=== PATIENT | female | born 2000 | race Caucasian/White ===

== ENCOUNTER 2019-01-22 00:36 | Emergency (ER) | payer SELFPAY ==
--- NOTE | 2019-01-22 01:06 | EDM.PDOC ---
ED HPI GENERAL MEDICAL PROBLEM - General Chief Complaint: Chest Pain Stated Complaint: CHEST PAIN/TINGLING IN BOTH ARMS Time Seen by Provider: 01/22/19 01:03 Source of Information: Reports: Patient History Limitations: Reports: No Limitations - History of Present Illness INITIAL COMMENTS - FREE TEXT/NARRATIVE: 89-year-old female attends the ED with her father. She states she awoke from sleep after stepping for less than a half an hour with diffuse central chest pressure discomfort and left arm numbness and tingling. Recurrent chest discomforts for many months at least the last 3 months and has been told that she likely has reflux disease. She takes omeprazole on a when necessary basis. She appreciated reflux only once in the past. He denies any pain on deep breathing she denies cough or sputum production. She is just getting over a cold. No associated fever or chills. Her pain in her left arm is in her biceps right where the blood pressure cuff is. She states she tends to be high strong and prone to anxiety but has never had a full-blown panic attack where she felt a sense of doom or that she might . She's not aware of palpitations or severe dyspnea. Onset: Today Onset Date: 01/22/19 Onset Time: 00:10 Duration: Minutes: Location: Reports: Chest (Central chest pressure discomfort without any heartburn.), Radiates to (Discomfort in the left upper extremity with more numbness and tingling.) Quality: Reports: Pressure (She finds it difficult to quantify her chest discomfort more of a pressure than anything.), Other Severity: Moderate Improves with: Reports: None Worsens with: Reports: None Context: Denies: Activity, Exercise, Lifting, Sick Contact, Trauma, Other Associated Symptoms: Reports: Other (Feel some discomfort in her left arm with numbness and tingling.) Treatments PATIENT REGISTRATION REPRESENTATIVE: Reports: Other (see below) (None.) - Related Data Allergies Allergy/AdvReac Type Severity Reaction Status Date / Time No Known Allergies Allergy Verified 01/22/19 00:44 Home Meds: Home Meds . [No Known Home Meds] 08/24/18 [History] Past Medical History - Past Health History Medical/Surgical History: Denies Medical/Surgical History Psychiatric History: Reports: Anxiety - Infectious Disease History Infectious Disease History: Reports: None Social & Family History - Family History Family Medical History: Noncontributory - Tobacco Use Smoking Status *Q: Current Every Day Smoker Years of Tobacco use: 1 Packs/Tins Daily: 0.5 - Caffeine Use Caffeine Use: Reports: Soda - Recreational Drug Use Recreational Drug Use: No - Living Situation & Occupation Living situation: Reports: with Family Occupation: Student ED ROS GENERAL - Review of Systems Review Of Systems: See Below Constitutional: Reports: No Symptoms HEENT: Reports: No Symptoms Respiratory: Reports: No Symptoms Cardiovascular: Reports: No Symptoms Endocrine: Reports: No Symptoms GI/Abdominal: Reports: No Symptoms : Reports: No Symptoms Musculoskeletal: Reports: No Symptoms Skin: Reports: No Symptoms Neurological: Reports: No Symptoms Psychiatric: Reports: No Symptoms Hematologic/Lymphatic: Reports: No Symptoms Immunologic: Reports: No Symptoms ED EXAM, GENERAL - Physical Exam Exam: See Below Exam Limited By: No Limitations General Appearance: Alert, WD/WN, No Apparent Distress, Other (Vital signs show temperature 36.6. Pulse is 106 in sinus respiratory 16 BP mildly elevated at 142 /96 sats are 97% on room air.) Eye Exam: Bilateral Eye: Normal Inspection Neck: Normal Inspection, Supple, Non-Tender, Full Range of Motion. No: Lymphadenopathy (L), Lymphadenopathy (R) Respiratory/Chest: No Respiratory Distress, Lungs Clear, Normal Breath Sounds, No Accessory Muscle Use, Chest Non-Tender. No: Respiratory Distress, Rhonchi, Wheezing Cardiovascular: Normal Peripheral Pulses, Regular Rate, Rhythm, No Edema, No Gallop, No Murmur, No Rub Peripheral Pulses: 3+: Posterior Tibial (L), Posterior Tibial (R), Dorsalis Pedis (L), Dorsalis Pedis (R) GI/Abdominal: Soft, Non-Tender, No Organomegaly, No Abnormal Bruit, No Mass, Pelvis Stable, Abnormal Bowel Sounds Back Exam: Normal Inspection, Full Range of Motion. No: CVA Tenderness (L), CVA Tenderness (R) Extremities: Normal Inspection, Normal Range of Motion, Non-Tender, No Pedal Edema, Normal Capillary Refill Neurological: Alert, Oriented, CN II-XII Intact, Normal Cognition, Normal Gait Psychiatric: Normal Affect, Normal Mood Skin Exam: Warm, Dry, Intact, Normal Color, No Rash EKG INTERPRETATION EKG Date: 01/22/19 Time: 01:23 Rhythm: NSR Rate (Beats/Min): 91 [place]: Normal P-Wave: Present QRS: Normal ST-T: Normal QT: Normal EKG Interpretation Comments: Normal ECG Course - Vital Signs Last Recorded V/S: Last Vital Signs Temp 36.6 C 01/22/19 00:40 Pulse 106 H 01/22/19 00:40 Resp 16 01/22/19 00:40 BP 142/96 H 01/22/19 00:40 Pulse Ox 97 01/22/19 00:40 - Orders/Labs/Meds Orders: Active Orders 24 hr Category Date Time Status EKG Documentation Completion [RC] STAT Care 01/22/19 01:06 Active Influenza Vaccine Charge [RC] .DISCHARGE Care 01/22/19 01:00 Active Chest 2V [CR] Stat Exams 01/22/19 01:04 Taken FLU Vacc [id number](6MOS+)/PF [Fluzone Quad Med 01/22/19 09:00 Once Syringe] 60 mcg IM .ONCE ONE Pharmacy to Dose - InFluenza V [Pharmacy to Dose - Med 01/22/19 01:00 Pending InFluenza Vaccine] 1 each IM ONETIME ONE Medication Orders Influenza Virus Vaccine (Pharmacy To Dose - Influenza Vaccine) 1 each IM ONETIME ONE Stop: 01/22/19 01:01 Influenza Virus Vaccine (Fluzone Quad Syringe) 60 mcg IM .ONCE ONE Stop: 01/22/19 09:01 Meds: Medications Generic Name Dose Route Start Last Admin Trade Name Freq PRN Reason Stop Dose Admin Influenza Virus Vaccine 1 each 01/22/19 01:00 Pharmacy To Dose - Influenza Vaccine IM 01/22/19 01:01 ONETIME ONE Influenza Virus Vaccine 60 mcg 01/22/19 09:00 Fluzone Quad Syringe IM 01/22/19 09:01 .ONCE ONE Discontinued Medications Generic Name Dose Route Start Last Admin Trade Name Freq PRN Reason Stop Dose Admin Famotidine 20 mg 01/22/19 01:39 Pepcid PO 01/22/19 01:40 ONETIME ONE - Radiology Interpretation Free Text/Narrative:: 18-year-old female presents to the ED after wakening from sleep for less than half an hour with central chest pressure discomfort and left arm discomfort associated with numbness and tingling. Just that she had development of hyperventilation syndrome either from pain or vagal response. She is difficult to sort out in terms that she has a history of generalized anxiety disorder and has been prescribed anxiety medications which she does not take. It's been suggested that she take omeprazole 20 mg daily however she doesn't often get the feeling of heartburn. She takes it sporadically as needed in which case it' s now working as it takes 3 days to start to work. I'm going to do a chest x- ray and an ECG to make sure nothing else is going on. At this time she is pain- free and her arm pain is getting better once it took the blood pressure cuff of her left arm. - Re-Assessments/Exams Free Text/Narrative Re-Assessment/Exam: 01/22/19 01:33 two-view chest x-ray is completely within normal limits his does not show any obvious signs of hiatal hernia. Lungs are clear cardiac silhouette is normal. ECG done and is sinus rhythm and 91/m and is normal. 01/22/19 01:44 discussed with her and her father about potential causes of his transient chest pressure discomfort. Most likely she is suffering from anxiety/ panic attack but she was sleeping when this occurred. Therefore reflux as high in the list of differential diagnosis with esophageal spasm. Adjusted taking Pepcid 20 mg every night at bedtime versus omeprazole which will work it on a daily basis. And if after a month she doesn't get any further attacks we can presume that she likely does have gastroesophageal reflux disease. She continues to get attacks she may well have underlying anxiety issues which will be addressed better with medication such as citalopram 20 mg daily. Given Pepcid 20 mg by mouth in the ED tonight. Discharged home in the care of her father Departure - Departure Time of Disposition: 01:39 Disposition: Home, Self-Care 01 Condition: Fair Clinical Impression: Non-cardiac chest pain, Anxiety attack, Esophageal spasm Referrals: PCP,Not In Area [Primary Care Provider] - Forms: ED Department Discharge Additional Instructions: Evaluation the emergency room tonight in regards of who awakening shortly after going to sleep with central chest pressure heaviness discomfort and associated development of left arm discomfort with numbness and tingling. No chest pain other than a heaviness in the central chest. No definitive heartburn or indigestion or obvious reflux. Examination of the lungs and heart is completely normal. Two-view chest x-ray proved to be completely normal and electrocardiogram her heart tracing is normal as well. No evidence on examination of heart related illness. 2 things may be contributing to this type of chest discomfort. One is esophageal spasm from reflux of acid into the lower part of the food pipe during the night which can cause irritation of the food pipe called esophagitis. This can make it cranky or going to spasm on intermittent basis and cause central chest discomfort. It may or may not be associated with burning discomfort associated with heartburn. The second causes anxiety attack which means sudden onset of pressure discomfort in the central chest often associated with palpitations or feeling the heart is skipping or racing and associated shortness of breath. This often is associated with the development of left upper extremity numbness and tingling as well. It is my suggestion that you try Pepcid 20 mg every night at bedtime for a month and see if you get any further attacks. Doing this and ureters continued to have similar type discomfort it would be prudent to start on anti-anxiety medication such as citalopram 20 mg once daily to prevent the attacks from occurring. Lopressor personal care physician if any further problems occur. - My Orders Last 24 Hours: My Active Orders 01/22/19 01:00 Influenza Vaccine Charge [RC] .DISCHARGE Pharmacy to Dose - InFluenza V [Pharmacy to Dose - InFluenza Vaccine] 1 each IM ONETIME ONE 01/22/19 01:04 Chest 2V [CR] Stat 01/22/19 01:06 EKG Documentation Completion [RC] STAT 01/22/19 09:00 FLU Vacc [id number](6MOS+)/PF [Fluzone Quad Syringe] 60 mcg IM .ONCE ONE - Assessment/Plan Last 24 Hours: My Active Orders 01/22/19 01:00 Influenza Vaccine Charge [RC] .DISCHARGE Pharmacy to Dose - InFluenza V [Pharmacy to Dose - InFluenza Vaccine] 1 each IM ONETIME ONE 01/22/19 01:04 Chest 2V [CR] Stat 01/22/19 01:06 EKG Documentation Completion [RC] STAT 01/22/19 09:00 FLU Vacc [id number](6MOS+)/PF [Fluzone Quad Syringe] 60 mcg IM .ONCE ONE
[2019-01-22] MEDS ORDERED: Famotidine 20 MG Tab PO ONE (01:39)
[2019-01-22] MEDS ORDERED: FLU Vacc QS2019-20(6MOS+)/PF 60 MCG/0.5 ML SYRINGE IM ONE ×2 (01:48→09:00)
--- NOTE | 2019-01-22 08:12 | CR ---
Chest: Two views of the chest were obtained. Comparison: No prior chest x-ray is available. Heart size and mediastinum are normal. Lungs are clear. Scoliosis is present within the spine. Impression: 1. Nothing acute is seen on two-view chest x-ray. Diagnostic code #2
== END 2019-01-22 02:00 | disposition home or self-care (01) ==
LOC: JD.ED 00:36
DX: F41.9 Anxiety disorder, unspecified (principal); R07.89 Other chest pain; K22.4 Dyskinesia of esophagus; F17.210 Nicotine dependence, cigarettes, uncomplicated; Z23 Encounter for immunization
CPT/HCPCS: 71046; 90471; 90686; 93005; 99285; A9270; G0008